=== PATIENT | male | born 1970 ===

== ENCOUNTER 2019-08-28 05:21 | Day surgery (SDC) | payer OTHER ==
--- NOTE | 2018-02-28 08:51 | General Progress Note ---
Progress Note Progress Note case was cancelled by insurance company. Approval in writing was obtained before case was scheduled, many weeks ago. Then yesterday, the insurance company cancel the case pending an CAROL ANN evaluation , which is pending. VERONICA CRAIG Feb 28, 2018 08:51
--- NOTE | 2019-08-27 18:51 | Pre-Procedure Note/Attestation ---
Pre-Procedure Note/Attestation Complete Prior to Procedure Planned Procedure: not applicable Procedure Narrative: 1. Open Reduction Internal Fixation nasal fracture 2. Septoplasty 3. Submucous resection right inferior turbinate 4. Submucous resection left inferior turbinate Indications for Procedure Pre-Operative Diagnosis: 1. Nasal fracture 2. Septoplasty 3. Hypertrophied right inferior turbinate 4. Hypertrophied left inferior turbinate. Attestation I attest that I discussed the nature of the procedure; its benefits; risks and complications; and alternatives (and the risks and benefits of such alternatives ), prior to the procedure, with the patient (or the patient's legal sales representative advertising). I attest that, if there was a reasonable possibility of needing a blood transfusion, the patient (or the patient's legal sales representative advertising) was given the [place] [employer] standardized written summary, pursuant to the [place] Blood Safety Act ([place] Health and Safety Code # 1645, as amended). I attest that I re-evaluated the patient just prior to the surgery and that there has been no change in the patient's H&P,done by Dr. Valerio Remy and reviewed by me. Ciro Elizabeth MD Aug 27, 2019 18:51
--- NOTE | 2019-08-27 18:52 | Brief Operative Note ---
Immediate Post Operative Note Operative Note Pre-op Diagnosis: 1. Nasal fracture 2. Septoplasty 3. Hypertrophied right inferior turbinate 4. Hypertrophied left inferior turbinate. Procedure: 1. Open Reduction Internal Fixation nasal fracture 2. Septoplasty 3. Submucous resection right inferior turbinate 4. Submucous resection left inferior turbinate Post-op Diagnosis: same as pre-op plus Surgeon: Dr. Ciro Elizabeth Wrapper Stemmer Hand: none Additional Surgeons: none Anesthesiologist: Ricci Anesthesia: general Specimen: none Complications: yes Condition: stable Fluids: D5LR Estimated Blood Loss: volume - 50 cc Drains: none Packing: Nasal gel Implant(s) used?: No Ciro Elizabeth MD Aug 27, 2019 18:52
--- NOTE | 2019-08-27 18:57 | Discharge Instructions ---
Discharge Instructions Discharge Instructions Follow up with: 09/04/19 12;45 pm [facility] Diet: regular Resume Normal Activity?: No Activity: light activity Pneumonia Vaccine: pt refused vaccine Influenza Vaccine (Aug to Jan): pt refused vaccine Follow Up Orders pT HAS PRINTED INSTRUCTIONS GIVEN TO HIM AT HIS PRE OP VISIT LAST WEEK. Return to Work/School on: Sep 11, 2019 For Congestive Heart Failure Reminder Report to your physician any weight gain of 5 pounds or more in one week. Ciro Momin MD Aug 27, 2019 18:57
[2019-08-28] VITALS (10 sets, daily range): BP systolic 105–135; BP diastolic 55–92
[~2019-08-28] VITALS: Ht 177.8 cm; Wt 113.4 kg
[~2019-08-28 05:21] MED LIST: AMLODIPINE BESY10 MG ORAL; CLA 1,000 MG1000 MG PO; COQ1050 MG PO; CRESTOR10 M2 ORAL; ESOMEPRAZOLE MA40 MG PO; GLUTATHIONE PO; METAMUCIL0.4 GM PO; OLMESARTAN MEDO40 MG PO; OMEGA 3 FISH O1 EAC1 PO; OMEGA POWER 11050 MG PO; PROBIOTIC1 EAC5 PO; TURMERIC PO; ZINC30 M1 ORAL
[2019-08-28] MEDS ORDERED: EDARBYCLOR 40-1 EAC1 ORAL (06:21)
[2019-08-28] MEDS ORDERED: Cocaine HCl 4% 4ml vial TOPIC ONE (07:10)
[2019-08-28] MEDS ORDERED: ceFAZolin sod 1 GM in D5W 55 ML IV ONE (07:10)
[2019-08-28] MEDS ORDERED: Bupivacaine 0.5% Inj 30 ml vial INJ ONE (07:11)
[2019-08-28] MEDS ORDERED: Lidocaine 1% 10mg/ml/Epi 0.005mg/ml 30ml vial INJ ONE ×2 (07:11→08:02)
[2019-08-28] MEDS ORDERED: LR 1000ml 1,000 ML IVLG SCH (07:18)
--- NOTE | 2019-08-28 07:18 | Anethesia Preoperative Eval ---
Anesthesia Pre-op PMH/ROS General Date of Evaluation: Aug 28, 2019 Anesthesiologist: Ricci ASA Score: ASA 2 Mallampati Score Class I : Soft palate, uvula, fauces, pillars visible Class II: Soft palate, uvula, fauces visible Class III: Soft palate, base of uvula visible Class IV: Only hard plate visible Mallampati Classification: Class III Surgeon: Clara Diagnosis: Deviated septum Surgical Procedure: septooplsty, smr turbs Anesthesia History: none Family History: no anesthesia problems Allergies: Coded Allergies: No Known Allergies (Unverified , 02/27/18) Medications: see eMAR Patient NPO?: Yes NPO Date: Aug 27, 2019 NPO Time: 22:00 Past Medical History Cardiovascular: Reports: HTN, other - HLD; Denies: CAD, PR, valve dz, arrhythmia Pulmonary: Denies: asthma, COPD, NATALIE, other Gastrointestinal/Genitourinary: Reports: GERD; Denies: CRI, ESRD, other Neurologic/Psychiatric: Denies: dementia, CVA, depression/anxiety, TIA, other Endocrine: Denies: DM, hypothyroidism, steroids, other HEENT: Denies: cataract (L), cataract (R), glaucoma, [place] (L), [place]G (R), other Hematology/Immune: Denies: anemia, DVT, bleeding disorder, other Musculoskeletal/Integumentary: Reports: OA; Denies: RA, DJD, DDD, edema, other Other: obesity PSxH Narrative: right eye szurgery, bmt, septoplsty, craniotomy, lap appy, t&a Anesthesia Pre-op Phys. Exam Physician Exam Last Vital Signs Date Time Temp Pulse Resp B/P (MAP) Pulse Ox O2 Delivery O2 Flow Rate FiO2 08/28/19 06:18 Room Air 08/28/19 06:11 97.8 64 18 109/71 96 Constitutional: NAD Cardiovascular: RRR Respiratory: CTA Airway Exam Mallampati Score: Class III MO: limited ROM: limited Anesthesia Pre-op A/P Labs see chart Studies Pre-op Studies: EKG - sr Risk Assessment & Plan Assessment: ASA II Plan: GA Status Change Before Surgery: No Pre-Antibiotics Drug: Yanira Silva MD Aug 28, 2019 07:18
[2019-08-28] MEDS ORDERED: Propofol 200mg/20ml IV ONE ×2 (07:20→07:31)
[2019-08-28] MEDS ORDERED: Lidocaine 1% MPF 10mg/ml 5ml ONE (07:20)
[2019-08-28] MEDS ORDERED: Midazolam 2mg/2ml Inj IVP PRN (07:30)
[2019-08-28] MEDS ORDERED: fentaNYL 100 mcg/2 mL IV PRN (07:30)
[2019-08-28] MEDS ORDERED: Dexamethasone 4mg/ml vial IVP ONE (07:30)
[2019-08-28] MEDS ORDERED: DiphenhydrAMINE 50mg/ml Inj IVP PRN (07:30)
[2019-08-28] MEDS ORDERED: LORazepam Inj 2mg/ml 1ml IV PRN (07:30)
[2019-08-28] MEDS ORDERED: Hydromorphone 0.5mg/0.5ml inj IVP PRN (07:30)
[2019-08-28] MEDS ORDERED: Dexamethasone 4mg/ml vial ONE (07:31)
[2019-08-28] MEDS ORDERED: Metoclopramide 10mg/2ml Inj ONE (07:31)
[2019-08-28] MEDS ORDERED: NS Irrig 1000ml ONE (08:00)
[2019-08-28] MEDS ORDERED: Sterile Water Irrig 1000ml IRRIG ONE (08:00)
--- NOTE | 2019-08-28 08:59 | Immediate Post-Op Evaluation ---
Immediate Post-Op Evalulation Immediate Post-Op Evalulation Procedure: ORIF nasal fracture, septoplasty smr turbs Date of Evaluation: Aug 28, 2019 Time of Evaluation: 09:00 IV Fluids: 500 Blood Products: 0 Estimated Blood Loss: 50 Urinary Output: 0 Blood Pressure Systolic: 113 Blood Pressure Diastolic: 61 Pulse Rate: 94 Respiratory Rate: 16 O2 Sat by Pulse Oximetry: 98 Temperature (Fahrenheit): 97.2 Pain Score (1-10): 0 Nausea: No Vomiting: No Complications 0 Patient Status: awake, reacts, patent, none Hydration Status: adequate Drug: Ancef 2g Given Within 1 Hr of Incision: Yes Yanira Goodman MD Aug 28, 2019 08:59
[2019-08-28] MEDS ORDERED: HYDROmorphone 1mg/ml Carpuject SUBQ PRN (09:00)
[2019-08-28] MEDS ORDERED: HYDROcodone/Acetamin 5/325 tab ORAL PRN (09:00)
[2019-08-28] MEDS ORDERED: Metoclopramide 10mg/2ml Inj IVP PRN (09:00)
--- NOTE | 2019-08-28 09:03 | 48 Hour Post Anesthesia Eval ---
Post Anesthesia Evaluation Procedure: ORIF nasal fracture, septoplasty smr turbs Date of Evaluation: Aug 28, 2019 Airway: patent Nausea: No Vomiting: No Hydration Status: adequate Cardiopulmonary Status: at baseline Mental Status/LOC: patient returned to baseline Post-Anesthesia Complications: 0 Follow-up care needed: ready to discharge Yanira Goodman MD Aug 28, 2019 09:03
--- NOTE | 2019-08-28 17:00 | Operative Note - Dictated ---
DATE OF OPERATION: 08/28/2019 SURGEON: Ciro Elizabeth M.D. CLEANING MAID: None. ANESTHESIOLOGIST: Dr. Wynne. ANESTHESIA: Oral endotracheal anesthesia as well as 4 mL of 4% cocaine, four nasal pledgets, two on either nostril accounted for at the end of the case. Two 18 mL of a 50:50 mixture, 1% lidocaine with 1:100,000 epinephrine and 0.5% bupivacaine with 1:200,000 epinephrine. INDICATION FOR PROCEDURE: The patient with a nasal fracture for nasal injury resulting in nasal bone fracture and septal deviation along with hypertrophied right and left inferior turbinates. POSTOPERATIVE DIAGNOSIS: The patient with a nasal fracture for nasal injury resulting in nasal bone fracture and septal deviation along with hypertrophied right and left inferior turbinates. FINDINGS: Septum deviated off to the left. Nose depressed on the left, pushed off to the right, however, nasal boat meets the upper lateral cartilage. PROCEDURES: 1. Open reduction and internal fixation of nasal fracture. 2. Septoplasty. 3. Submucous resection, right inferior turbinate 4. Submucous resection, left inferior turbinate. TECHNIQUE: The patient was prepped and draped in usual manner. A time-out was performed and all agreed as the procedure to be done. Initially, I injected the nose with the aforementioned lidocaine, Marcaine, epinephrine mixture, a total of 18 mL. I injected IN V1, V2 and then inside the nose and the inferior turbinates as well. Two nasal pledgets with the aforementioned 4% cocaine was placed in either nostril. Initially, I made an incision in the inferior left turbinate with #15 blade. I then made two passes with a radiofrequency wand after coating with saline gel and outfracturing with a Boies elevator. Returned to the right inferior turbinate. A similar procedure as the left inferior turbinate. Incision made in the anterior inferior position with #15 blade. In the setting of 6, I passed the radiofrequency wand after coating with saline gel for 10 seconds x2. Again, outfractured with a Boies elevator. I then proceeded to address the septum. Incision made with a #15 blade through the mucosa and periosteum on the left side and through the nasal quadrangular cartilage. I then was able to elevate the periosteum, perichondrium on either side of the nasal septum. I did this by lifting the periosteum. I then used a small angled scissors, cut quadrangular cartilage leaving a centimeter inferiorly and anteriorly. The remainder was cross hatched. I then was able to use a 4-0 plain suture and together. There was no perforation of the right side of the septal mucosa. I then made between cartilage incisions with a #15 blade. Elevated with kelly scissors and an elevator over the periosteum. I then used a gouge osteotome to remove small bump on the anterior nose. I then used a straight guarded osteotome to do medial osteotomies and then I used a straight guarded osteotome with was smaller to make a lateral osteotomies. I was then able to have a complete fracture of either side of the nose. No greenstick fracture. I then rasped the anterior nose. Nose was placed into normal anatomic position after having repositioned the existing fracture. Skin prep tape and a [place] splint was placed on the nose. I then used one syringe of nasal gel between the two nares, most of in the left side, 2/3rd on the right side. I placed a mustache dressing. ESTIMATED BLOOD LOSS: 50 mL. COMPLICATIONS: None. DRAINS: None. The patient is awake, alert, and stable in the operating room prior to transfer to the recovery room. Please note that initially the patient had an LMA placed. He was not moving air well, so the anesthesiologist converted this before any surgery or injections were started to a endotracheal tube, which he tolerated well. Again, no complications during surgery or after extubation prior to transfer to the recovery room. Ciro Elizabeth M.D. DR: SHAYNA JOB#: [id number] CC:
== END 2019-08-28 10:45 | disposition home or self-care (01) ==
LOC: SUR 05:21
DX: S02.2XXA Fracture of nasal bones, initial encounter for closed fracture (principal); J34.2 Deviated nasal septum; J34.3 Hypertrophy of nasal turbinates; E78.5 Hyperlipidemia, unspecified; I10 Essential (primary) hypertension; K21.9 Gastro-esophageal reflux disease without esophagitis; M19.90 Unspecified osteoarthritis, unspecified site; E66.9 Obesity, unspecified; Z90.89 Acquired absence of other organs; X58.XXXA Exposure to other specified factors, initial encounter; Y92.9 Unspecified place or not applicable; Z68.35 Body mass index [BMI] 35.0-35.9, adult
CPT/HCPCS: 21330; 30140; 30520; J0690; J1100; J2250; J2405; J2704; J2765; J3010; J3490; 94003; 94150